=== PATIENT | female | born 1980 | race Caucasian/White ===

== ENCOUNTER → 2016-09-07 | Outpatient (CLI) | payer OTHER ==
[2011-08-28 20:34] VITALS: BP 152/84
== END ==
LOC: LAB 13:39
DX: Z11.1 Encounter for screening for respiratory tuberculosis (principal)

== ENCOUNTER → 2020-11-25 | Outpatient (REF) | LOC: LAB 21:51 | DX: Z20.822 Contact with and (suspected) exposure to COVID-19 (principal) ==

== ENCOUNTER → 2021-08-22 | Outpatient (CLI) | payer OTHER ==
[2021-08-22 13:57] LABS: BASO # 0.04 K/mm3 (0.02-0.10); EOS # 0.18 K/mm3 (0.04-0.40); EOS % 2.4 % (1.0-5.0); HEMATOCRIT 45.5 % (37.0-47.0); HEMOGLOBIN 15.3 g/dL (12.5-16.0); LYMPH# 1.63 K/mm3 (1.50-4.00); MEAN CELL VOLUME 88 fl (78-100); MEAN CORPUSCULAR HEMOGLOBIN 30 pg (27-31); MEAN CORPUSCULAR HGB CONC 34 g/dL (33-37); MONO # 0.52 K/mm3 (0.20-0.80); NEU # 4.98 K/mm3 (1.40-6.50); PLATELET COUNT 217 K/mm3 (130-400); RED BLOOD COUNT 5.17 M/mm3 (4.10-5.30); RED CELL DISTRIBUTION WIDTH 12.7 % (11.5-14.5); WHITE BLOOD COUNT 7.4 K/mm3 (4.8-10.8)
[2021-08-22 14:07] LABS: ALBUMIN 4.5 g/dL (3.5-5.0)
[2021-08-22 14:08] LABS: POTASSIUM 3.8 mmol/L (3.5-5.1); SODIUM 141 mmol/L (136-145)
[2021-08-22 14:10] LABS: GLUCOSE 116 mg/dL (65-105)
[2021-08-22 14:11] LABS: CARBON DIOXIDE 23 mmol/L (22-29)
[2021-08-22 14:12] LABS: TOTAL BILIRUBIN 0.5 mg/dL (0.2-1.2)
[2021-08-22 14:15] LABS: AST-SGOT 17 U/L (5-34)
[2021-08-22 14:17] LABS: ALT/SGPT 22 U/L (0-55)
[2021-08-22 14:22] LABS: TROPONIN-I < 0.030 ng/mL (<0.030)
== END ==
LOC: LAB 13:32
PROVIDERS: Nurse Practitioner Family
DX: R00.2 Palpitations (principal); R01.1 Cardiac murmur, unspecified; Z86.16 Personal history of COVID-19

== ENCOUNTER → 2022-12-08 | Outpatient (CLI) | payer BC ==
[2022-12-08 11:45] LABS: ALBUMIN 4.3 g/dL (3.5-5.0)
[2022-12-08 11:46] LABS: CALCIUM 9.7 mg/dL (8.3-10.5)
[2022-12-08 11:47] LABS: TOTAL PROTEIN 7.2 g/dL (6.4-8.3)
[2022-12-08 11:49] LABS: TOTAL BILIRUBIN 0.6 mg/dL (0.2-1.2)
[2022-12-08 12:21] LABS: BASO # 0.03 K/mm3 (0.02-0.10); EOS # 0.26 K/mm3 (0.04-0.40); EOS % 4.1 % (1.0-5.0); HEMATOCRIT 43.6 % (37.0-47.0); HEMOGLOBIN 14.4 g/dL (12.5-16.0); LYMPH# 1.89 K/mm3 (1.50-4.00); MEAN CELL VOLUME 91 fl (78-100); MEAN CORPUSCULAR HEMOGLOBIN 30 pg (27-31); MEAN CORPUSCULAR HGB CONC 33 g/dL (33-37); MEAN PLATELET VOLUME 11.3 fl (7.4-10.4); MONO # 0.42 K/mm3 (0.20-0.80); NEU # 3.79 K/mm3 (1.40-6.50); PLATELET COUNT 243 K/mm3 (130-400); RED BLOOD COUNT 4.82 M/mm3 (4.10-5.30); RED CELL DISTRIBUTION WIDTH 13.3 % (11.5-14.5); WHITE BLOOD COUNT 6.4 K/mm3 (4.8-10.8)
== END ==
LOC: LAB 11:23
PROVIDERS: Physician Assistant
DX: Z00.00 Encounter for general adult medical examination without abnormal findings (principal); Z12.39 Encounter for other screening for malignant neoplasm of breast; Z13.220 Encounter for screening for lipoid disorders; Z13.29 Encounter for screening for other suspected endocrine disorder; K90.9 Intestinal malabsorption, unspecified; J45.909 Unspecified asthma, uncomplicated; E66.01 Morbid (severe) obesity due to excess calories